=== PATIENT | female | born 1990 | race African-American/Black ===

== ENCOUNTER 2024-07-20 07:58 | Emergency (ER) | payer BC ==
[~2024-07-20] VITALS: Ht 167.6 cm; Wt 99.8 kg
[2024-07-20 08:04] VITALS: O2SAT 99
== END 2024-07-20 08:26 | disposition left against medical advice (07) ==
LOC: ER 07:58
DX: N39.8 Other specified disorders of urinary system (principal); Z53.21 Procedure and treatment not carried out due to patient leaving prior to being seen by health care provider
CPT/HCPCS: A4606; A4663